=== PATIENT | male | born 1995 | race Caucasian/White ===

== ENCOUNTER 2021-07-04 17:03 | Emergency (ER) | payer OTHER ==
[~2021-07-04] VITALS: Ht 177.8 cm; Wt 82.0 kg
[2021-07-04] MEDS ORDERED: ZIPRASIDONE HCL 20MG CAPSULE PO STA (18:09)
[2021-07-04] MEDS ORDERED: LORAZEPAM 1MG TABLET PO ONE (18:15)
[2021-07-04 18:48] LABS: BASOPHILS % 0.8 % (0.0-2.0); HEMATOCRIT. 46.5 % (42.0-52.0); LYMPHOCYTES % 28.7 % (20.0-50.0); MEAN CORPUSCULAR HEMOGLOBIN 31.1 pg (28.0-32.0); MEAN CORPUSCULAR VOLUME 90.4 fL (80.0-94.0); MEAN PLATELET VOLUME 8.7 fl (7.4-10.4); MONOCYTES % 11.5 % (2.0-8.0); PLATELET 223 x1000/uL (130-400); RED BLOOD CELL COUNT 5.15 mill/uL (4.7-6.1); RED CELL DISTRIBUTION WIDTH 13.2 % (11.6-14.6)
[2021-07-04 18:56] LABS: CHLORIDE 110 mEq/L (98-107)
[2021-07-04 19:00] LABS: ETHANOL BLOOD < 10 mg/dL
[2021-07-04 22:49] LABS: HEPATITIS B SURFACE ANTIGEN NEGATIVE
[2021-07-05 01:48] LABS: CLARITY URINE CLEAR (CLEAR); COLOR URINE DARK YELLOW (YELLOW); KETONES URINE TRACE (NEGATIVE); LEUKOCYTE ESTERASE URINE NEGATIVE (NEGATIVE); NITRITE URINE NEGATIVE (NEGATIVE); OCCULT BLOOD URINE NEGATIVE (NEGATIVE); PROTEIN URINE TRACE (NEGATIVE); SPECIFIC GRAVITY URINE 1.032 (1.005-1.030)
[2021-07-05 01:58] LABS: CANNABINOID URINE SCREEN PRESUMTIVE POSITIVE (NEGATIVE); METHADONE URINE SCREEN NEGATIVE (NEGATIVE); OPIATES URINE SCREEN NEGATIVE (NEGATIVE); PHENCYCLIDINE URINE SCREEN NEGATIVE (NEGATIVE)
[2021-07-05 01:59] LABS: *AMPHETAMINES SCREEN URINE NEGATIVE (NEGATIVE); *BARBITURATES SCREEN URINE NEGATIVE (NEGATIVE); *BENZODIAZEPINES SCREEN URINE NEGATIVE (NEGATIVE); *COCAINE SCREEN URINE NEGATIVE (NEGATIVE)
[2021-07-05] MEDS ORDERED: LORAZEPAM 2MG/ML CPJ IV ONE (07:15)
[2021-07-05] MEDS ORDERED: SODIUM CHLORIDE 0.9% 1,000 ML IV ONE (07:15)
[2021-07-05] MEDS ORDERED: LEVETIRACETAM 500MG PREMIX 100 ML IV ONE (07:15)
[2021-07-05] MEDS ORDERED: ZIPRASIDONE HCL 20MG CAPSULE PO SCH (17:00)
[2021-07-06 00:30] VITALS: BP 121/79
== END 2021-07-06 01:05 | disposition short-term general hospital (02) ==
LOC: ER 17:03 → CANBEDREQ 07-05 11:58 → ER 07-06 01:05
DX: R45.851 Suicidal ideations (principal); F15.10 Other stimulant abuse, uncomplicated; Z20.822 Contact with and (suspected) exposure to COVID-19
CPT/HCPCS: 36415; 76705; 80053; 80307; 80320; 80329; 85025; 86705; 86709; 86803; 87340; 99285; C9803; U0003; U0005; J7030; G0480